=== PATIENT | female | born 1975 | race Caucasian/White ===

== ENCOUNTER 2022-04-09 08:36 | Emergency (ER) | payer MEDICAID ==
[~2022-04-09] VITALS: Ht 170.2 cm; Wt 76.2 kg
[2022-04-09 08:36] VITALS: BP_SYST 109
--- NOTE | 2022-04-09 08:40 | NUR ---
BROUGHT BACK TO BED #7 AND TRIAGED.REPORT GIVEN TO PREM
--- NOTE | 2022-04-09 09:00 | NUR ---
NEURO CK COMPLETED, QUIN, EQUAL HAND CAGE MAKER, EQUAL BLE STRENGTH, ZACK SAAVEDRA AND JEAN-PAUL, N/V. Addendum: 04/09/22 at 1151 by [email or web address] CHARTING ON WRONG PT.
--- NOTE | 2022-04-09 09:01 | NUR ---
RECEIVED PT FROM ANDREA MELÉNDEZ. PT HAS C/O OR LEFT RIB PAIN AND LEFT LOWER BACK PAIN. PT HAS NO ECCYMOSIS AT LEFT RIB, ECCYMOSIS NOTED TO LEFT LOWER BACK. SKIN INTACT. RESP E/U. ON R/A. DENIES N/V/C/D. PT STATES PAIN 5/10, INCREASES WITH MOVEMENT. SIDERAILS UP X2. AT BEDSIDE.
--- NOTE | 2022-04-09 10:20 | NUR ---
DR THOMPSON AT BEDSIDE FOR EVALUATION
[2022-04-09] MEDS ORDERED: traMADol HCL HCL 50 MG TABLET (ULTRAM) PO ONE (10:30)
--- NOTE | 2022-04-09 11:35 | NUR ---
CT SCAN COMPLETED.
[2022-04-09] MEDS ORDERED: IBUP-1969 PO (13:02)
[2022-04-09] MEDS ORDERED: TRAM50TA PO (13:02)
[2022-04-09 13:16] VITALS: BP_SYST 111
--- NOTE | 2022-04-09 13:19 | NUR ---
DIPatient given written and verbal discharge instructions and verbalizes understanding. ER MD discussed with patient the results and treatment provided. Patient in stable condition. ID arm band removed. Rx of IBUPROPHEN, TRAMADOL given. Patient educated on pain management and to follow up with PMD. Pain Scale 0/10. Opportunity for questions provided and answered. Medication side effect fact sheet provided.
== END 2022-04-09 13:19 | disposition home or self-care (01) ==
LOC: SED 08:36
DX: S20.212A Contusion of left front wall of thorax, initial encounter (principal); Z79.899 Other long term (current) drug therapy; W34.00XA Accidental discharge from unspecified firearms or gun, initial encounter; Y93.89 Activity, other specified; Y92.89 Other specified places as the place of occurrence of the external cause; Y99.8 Other external cause status
CPT/HCPCS: 71045; 71250-TC; 76376; 99284